=== PATIENT | female | born 1960 ===

== ENCOUNTER 2018-04-26 13:34 | Outpatient (CLI) | payer SELFPAY | END 2018-04-26 13:35 | disposition home or self-care (01) | LOC: C.USIC 13:34 | DX: Q61.2 Polycystic kidney, adult type (principal) ==

== ENCOUNTER 2018-04-27 10:11 | Outpatient (CLI) | payer SELFPAY | END 2018-04-27 10:12 | disposition home or self-care (01) | LOC: C.LAB 10:11 | DX: Q61.2 Polycystic kidney, adult type (principal) ==

== ENCOUNTER 2018-05-23 12:05 | Outpatient (CLI) | payer SELFPAY | END 2018-05-23 12:06 | disposition home or self-care (01) | LOC: C.LAB 12:05 | DX: Q61.2 Polycystic kidney, adult type (principal) ==

== ENCOUNTER 2018-07-04 22:37 | Emergency (ER) | payer SELFPAY ==
--- NOTE | 2018-07-04 23:52 | C.PDOC ---
Time Seen by Provider: 07/04/18 23:19 Chief Complaint (Nursing): Upper Extremity Problem/Injury Past Medical History Vital Signs: Last Vital Signs Temp 97.3 F L 07/04/18 22:41 Pulse 86 07/04/18 22:41 Resp 20 07/04/18 22:41 BP 189/99 H 07/04/18 22:41 Pulse Ox 96 07/04/18 22:41 Primary Care Provider: Non [facility] Provider, - Medical History PMH: HTN, Chronic Kidney Disease Family History: States: Unknown Family Hx - Social History Hx Alcohol Use: Yes Hx Substance Use: No ED Course And Treatment O2 Sat by Pulse Oximetry: 96 Disposition - Disposition
[2018-07-04] MEDS ORDERED: Midazolam 2 MG/2 ML VIAL IV STA (23:54)
--- NOTE | 2018-07-05 00:11 | C.PDOC ---
History Of Present Illness 57 year old female presents to the ED for evaluation of left shoulder pain. Patient reports 2 hours [employer] she tripped and fell off a curb. Patient states it was dark outside was not able to see very well, tripped on the curb and landed on her left shoulder. Patient denies headache, visual changes, neck pain, rash, other injuries. Time Seen by Provider: 07/04/18 23:19 Chief Complaint (Nursing): Upper Extremity Problem/Injury History Per: Patient History/Exam Limitations: no limitations Onset/Duration Of Symptoms: Hrs (2) Current Symptoms Are (Timing): Still Present Quality: "Pain" Exacerbating Factor(s): Strenuous Use Of Affected Area, Movement Recent travel outside of the [place]: No Additional History Per: Patient Past Medical History Reviewed: Historical Data, Nursing Documentation, Vital Signs Vital Signs: Last Vital Signs Temp 97.3 F L 07/04/18 22:41 Pulse 86 07/04/18 22:41 Resp 20 07/04/18 22:41 BP 189/99 H 07/04/18 22:41 Pulse Ox 96 07/04/18 23:56 Primary Care Provider: Non [facility] Provider, - Medical History PMH: HTN, Chronic Kidney Disease Surgical History: No Surg Hx Family History: States: Unknown Family Hx - Social History Hx Alcohol Use: Yes Hx Substance Use: No Review Of Systems Constitutional: Negative for: Fever, Chills Eyes: Negative for: Vision Change Cardiovascular: Negative for: Chest Pain Respiratory: Negative for: Cough, Shortness of Breath Gastrointestinal: Negative for: Nausea, Vomiting, Abdominal Pain Musculoskeletal: Positive for: Shoulder Pain (left) Skin: Negative for: Rash Neurological: Negative for: Weakness, Numbness, Headache, Dizziness Physical Exam - Physical Exam Appears: Non-toxic, In Acute Distress Skin: Normal Color, Warm, Dry, No Pale, No Rash Head: Atraumatic, Normacephalic Eye(s): bilateral: Normal Inspection, PERRL, EOMI Ear(s): Bilateral: Normal Oral Mucosa: Moist Throat: No Erythema, No Exudate Neck: Normal ROM, No Midline Cervical Tenderness, Supple Chest: Symmetrical, No Tenderness Cardiovascular: Rhythm Regular, No Friction Rub, No Murmur Respiratory: Normal Breath Sounds, No Rales, No Rhonchi Gastrointestinal/Abdominal: Soft, No Tenderness Back: Normal Inspection, No CVA Tenderness Extremity: No Normal ROM (limited left shoulder due to pain), Tenderness (lateral aspect left shoulder), Capillary Refill (< 2 seconds), Deformity, Swelling (moderate lateral aspect left shoulder) Extremity: Bilateral: Normal Color And Temperature Pulses: Left Radial: Normal, Right Radial: Normal Neurological/Psych: Oriented x3, Normal Speech, Normal Cognition, Normal Motor, Normal Sensation Gait: Steady ED Course And Treatment O2 Sat by Pulse Oximetry: 96 (ON RA) Pulse Ox Interpretation: Normal - Other Rad Left shoulder X-Ray X-Ray: Interpreted by Me, Viewed By Me Interpretation: (+) dislocation, No fracture Medical Decision Making Medical Decision Making: Plan: * Tylenol 975 mg PO * Left shoulder X-Ray * Left humerus X-Ray Discussed case with Dr. Story, who will perform reduction of the shoulder in main ED. Disposition - Disposition Referrals: Merrill Kiser MD [Staff Provider] - Disposition: HOME/ ROUTINE Disposition Time: 01:47 Condition: GOOD Additional Instructions: Follow up with the medical doctor within 1-2 days. Return if worsened. Prescriptions: Acetaminophen [Tylenol] 325 mg PO Q6 PRN #30 tab PRN Reason: Pain, Mild (1-3) Instructions: Shoulder Dislocation (DC), Moderate Sedation in Adults (DC) Forms: [facility] (Yakut) Print Language: TOGOLESE - Clinical Impression Clinical Impression: Shoulder dislocation - PA / LEAD ATG DEVELOPER / Resident Statement MD/DO has reviewed & agrees with the documentation as recorded. - Scribe Statement The provider has reviewed the documentation as recorded by the Scribe Ricky Garrison All medical record entries made by the Scribe were at my direction and personally dictated by me. I have reviewed the chart and agree that the record accurately reflects my personal performance of the history, physical exam, medical decision making, and the department course for this patient. I have also personally directed, reviewed, and agree with the discharge instructions and disposition. Proc Sedation PRE-PROCEDURE - Pre-Anesthesia Chief Complaint: Upper Extremity Problem/Injury Past Medical History: Medications Reviewed, Allergies Reviewed, Record Review Previous Surgies: Reviewed Family History/Social History: Reviewed - Physical Exam/Review of Systems Vital Signs Reviewed: Yes Cardiovascular: Regular Rate and Rhythm, Normal S1, S2. denies: Murmurs Respiratory/Chest: Clear to Auscultation, Good Air Exchange. denies: Respiratory Distress, Accessory Muscle Use Neurological: GCS=15, CN II-XII Intact, Speech Normal Abdomen: Normal Bowel Sounds. denies: Tenderness, Distention, Peritoneal Signs Mental Status: Alert and Oriented X 3 - Pre-Procedure Airway Assessment History of difficult intubation or surgical airway (i.e trach):: No Inability to extend neck:: No Mouth opening less than two finger breadth:: No Diagnosis of sleep apnea:: No Less than three finger breadth to hyoid bone:: No ASA Criteria: 1 - Healthy, normal. 2 - Mild systemic disease (No functional limitations, mildline obesity, DM withot complications, Hypertention). 3 - Severe systemic disease (Some functional limitation, stable angina, morbid obesity, controlled COPD/Asthma/CHF). 4 - Sever systemic disease constant threat to life (Unstable angina, active symptoms of COPD/Asthma, CHF/Hypertension. 5 - Moribund ASA Clarification: ASA I Proc Sedation INTRA-PROCEDURE - Medications Medications Given: Discontinued Medications Acetaminophen (Tylenol 325mg Tab) 975 mg PO STAT STA Stop: 07/04/18 23:34 Last Admin: 07/04/18 23:34 Dose: 975 mg MAR Pain/Vitals Document 07/04/18 23:34 LD (Rec: 07/04/18 23:35 LD [id number]) Pain Reassessment Is This A Pain ReAssessment? No Sleep Is patient sleeping during reassessment? No Presence of Pain Presence of Pain Yes Fentanyl (Fentanyl) 100 mcg IV STAT STA Stop: 07/04/18 23:55 Midazolam HCl (Versed Inj) 4 mg IV STAT STA Stop: 07/04/18 23:55 Proc Sedation POST-PROCEDURE - Post Procedure Physician Note Post Procedure Note: The patient tolerated the procedure well - Discharge Checklist Written MD order for Discharge: Yes Vital signs assessed and are consistent with pre-procedure reading: Yes Minimal nausea, vomiting, and dizziness: No Ambulates to pre-procedural level: Yes Alert and oriented to pre-procedural level: Yes Responsible adult escort present: Yes (Friend at bedside) DISCHARGE INSTRUCTIONS GIVEN:: Yes Procedures - Orthopedic Joint Reduction Joint #1 Consent Obtained: written consent Time Out Performed: Yes Side: left Joint Reduction Location: shoulder Analgesia: procedural sedation Shoulder Technique Used (if applicable): Ashley Technique Used: direct manipulation Post-Reduction Neuro Exam: intact Post-Reduction Vascular Exam: intact Post Reduction X-Ray Obtained: Yes (The shoulder was reduced with success) Post Reduction X-Ray Results: reduced Splint Applied: Yes (Figure 8 shoulder immobilizer applied) Patient Tolerated Procedure: well
[2018-07-05] MEDS ORDERED: Midazolam 2 MG/2 ML VIAL ONE (00:39)
[2018-07-05 01:31] VITALS: RESP 16
[2018-07-05 02:18] VITALS: BP 134/76; PULSE 78; TEMP 98.4
[2018-07-05 02:22] VITALS: O2SAT 96
--- NOTE | 2018-07-05 07:37 | RAD ---
Date of service: 07/04/2018 PROCEDURE: Radiographs of the Left Shoulder HISTORY: fall, injury COMPARISON: No prior. TECHNIQUE: 3 views obtained. FINDINGS: BONES: No definitive displaced fracture or destructive bony lesion appreciable at this time. JOINTS: There is an anterior inferior dislocation of the left humerus relative to the glenoid process. The acromial clavicular joint appears mildly degenerated and is otherwise intact. SOFT TISSUES: Normal. OTHER FINDINGS: None. IMPRESSION: Anteroinferior dislocation left humeral head relative to the glenoid process. Degenerative change acromioclavicular joint. No acute fracture is displaced.
--- NOTE | 2018-07-05 07:41 | RAD ---
PROCEDURE: Radiographs of the left humerus. HISTORY: arm injury COMPARISON: None. TECHNIQUE: 2 views obtained. FINDINGS: BONES: No acute fracture or destructive bony lesion is appreciated throughout the left humerus. The left humeral head appears dislocated anterior inferiorly relative to the glenoid process, described in separate left shoulder radiographs separately but also performed 07/04/2018. Small exostosis or spur is identified the inferior margins of the acromion. SOFT TISSUES: Normal. OTHER FINDINGS: None. IMPRESSION: No fracture of the left humerus appreciable. Anteroinferior dislocation left humeral head relative to glenoid process as per above. Please see separate left shoulder radiograph report 07/04/2018. Small exostosis or spur identified at the inferior margins of the acromion.
--- NOTE | 2018-07-05 07:44 | RAD ---
Date of service: 07/05/2018 PROCEDURE: Radiographs of the Left Shoulder HISTORY: fall COMPARISON: No prior. TECHNIQUE: 1 views obtained. FINDINGS: BONES: A single frontal postreduction projection demonstrates the left humeral head reduced at the left glenohumeral joint although the positioning is somewhat limited. No displaced fracture appreciable grossly. Positioning projects the left humeral head immediately inferior to the glenoid process and based on the appearance of the left hemithorax, this is largely of function of image capture of similar to apical lordotic type positioning of the chest. JOINTS: Reduced dislocation apparent. SOFT TISSUES: Normal. OTHER FINDINGS: None. IMPRESSION: Left humeral head now reduced at the glenohumeral joint distortion of the image limits interpretation somewhat. No displaced fracture appreciable grossly.
== END 2018-07-05 02:20 | disposition home or self-care (01) ==
LOC: C.ER 22:37
DX: S43.005A Unspecified dislocation of left shoulder joint, initial encounter (principal); W01.0XXA Fall on same level from slipping, tripping and stumbling without subsequent striking against object, initial encounter; I12.9 Hypertensive chronic kidney disease with stage 1 through stage 4 chronic kidney disease, or unspecified chronic kidney disease; N18.9 Chronic kidney disease, unspecified
CPT/HCPCS: 23650; 73030; 73060; 99285; J2250; J3010

== ENCOUNTER 2018-07-13 11:03 | Outpatient (CLI) | payer SELFPAY | END 2018-07-13 11:04 | disposition home or self-care (01) | LOC: C.LAB 11:03 | DX: Q61.2 Polycystic kidney, adult type (principal) ==

== ENCOUNTER 2018-07-20 09:53 | Emergency (ER) | payer SELFPAY ==
[2018-07-20 10:05] VITALS: RESP 20; TEMP 98.8
[2018-07-20] MEDS ORDERED: Lidocaine 5% Patch TD STA (10:33)
[2018-07-20] MEDS ORDERED: Lidocaine 5% Patch TD ONE (10:40)
--- NOTE | 2018-07-20 11:22 | C.PDOC ---
History Of Present Illness Patient is a 57 year old female who presents to the ED c/o left upper arm pain since this morning. Patient states that she had a fall on July and sustained a shoulder dislocation that was reduced at [facility] and has been well since then. She reports that last night she feels she jerked her arm in her sleep and sustained pain to her upper arm area. Her pain does not affect her shoulder or elbow joint, just the mid upper arm. She denies any trauma, falls, injury, fever, chills, or nausea. Time Seen by Provider: 07/20/18 10:16 Chief Complaint (Nursing): Upper Extremity Problem/Injury History Per: Patient History/Exam Limitations: no limitations Onset/Duration Of Symptoms: Hrs Current Symptoms Are (Timing): Still Present Quality: "Pain" Recent travel outside of the [place]: No Additional History Per: Patient Past Medical History Reviewed: Historical Data, Nursing Documentation, Vital Signs Vital Signs: Last Vital Signs Temp 98.8 F 07/20/18 10:07 Pulse 68 07/20/18 10:07 Resp 20 07/20/18 10:07 BP 144/77 07/20/18 10:07 Pulse Ox 100 07/20/18 10:07 Primary Care Provider: Non [facility] Provider, - Medical History PMH: HTN, Chronic Kidney Disease Surgical History: No Surg Hx Family History: States: Unknown Family Hx - Social History Hx Alcohol Use: Yes Hx Substance Use: No Review Of Systems Constitutional: Negative for: Fever, Chills Gastrointestinal: Negative for: Nausea Musculoskeletal: Positive for: Arm Pain (left upper arm ) Physical Exam - Physical Exam Appears: Non-toxic, No Acute Distress Extremity: Normal ROM (reduced mobilitywith abduction, but she does have good flexion and extension of arm. Good mobility of elbow and wrist. ), Tenderness (tenderness to mid upper arm) Neurological/Psych: Oriented x3 ED Course And Treatment O2 Sat by Pulse Oximetry: 100 (on RA) Pulse Ox Interpretation: Normal Medical Decision Making Medical Decision Making: Plan: Tylenol 975mg PO Motrin 600mg PO On reevaluation, patient reports somewhat increased mobility. Patient is set up for ortho visit August 08. Disposition Counseled Patient/Family Regarding: Diagnosis, Need For Followup, Rx Given - Disposition Disposition: HOME/ ROUTINE Disposition Time: 11:20 Condition: IMPROVED Prescriptions: Acetaminophen [Tylenol Extra Strength] 1,000 mg PO TID #8 tablet Ibuprofen [Motrin] 600 mg PO TID #15 tab Instructions: Muscle and Bone Pain (DC) Forms: [facility] (New Zealander), Gen Discharge Inst New Zealander - POA Present On Arrival: None - Clinical Impression Clinical Impression: Muscle strain - Scribe Statement The provider has reviewed the documentation as recorded by the Joseibrivera Rios All medical record entries made by the Scribe were at my direction and personally dictated by me. I have reviewed the chart and agree that the record accurately reflects my personal performance of the history, physical exam, medical decision making, and the department course for this patient. I have also personally directed, reviewed, and agree with the discharge instructions and disposition.
[2018-07-20 11:23] VITALS: BP 175/95; PULSE 54
[2018-07-20 11:59] VITALS: O2SAT 100
== END 2018-07-20 11:30 | disposition home or self-care (01) ==
LOC: C.ER 09:53
DX: S46.912A Strain of unspecified muscle, fascia and tendon at shoulder and upper arm level, left arm, initial encounter (principal); X58.XXXA Exposure to other specified factors, initial encounter

== ENCOUNTER 2018-07-20 19:08 | Emergency (ER) | payer SELFPAY ==
--- NOTE | 2018-07-20 20:44 | C.PDOC ---
History Of Present Illness 57 year old female presents to ED with worsened left shoulder pain for the past day. Patient dislocated her left shoulder on July 05 and was seen in [facility] ED. Patient had a good relocation of the shoulder. Patient was also seen this morning in the [facility] for worsening left shoulder pain, which began spontaneously while in bed overnight and rolled over. No relocation maneuvers were attempted in the ED visit earlier today. Patient reports that she felt better at home, but is now in more severe pain than earlier today. She denies weakness, numbness, fall, or trauma. Time Seen by Provider: 07/20/18 19:45 Chief Complaint (Nursing): Upper Extremity Problem/Injury History Per: Patient History/Exam Limitations: no limitations Onset/Duration Of Symptoms: Days (1) Current Symptoms Are (Timing): Still Present Quality: "Pain" Past Medical History Reviewed: Historical Data, Nursing Documentation, Vital Signs Vital Signs: Last Vital Signs Temp 97.6 F 07/20/18 19:27 Pulse 68 07/20/18 19:27 Resp 20 07/20/18 19:27 BP 195/121 H 07/20/18 19:27 Pulse Ox 100 07/20/18 19:27 Primary Care Provider: Clinic,Med S[facility] - Medical History PMH: HTN, Chronic Kidney Disease Surgical History: No Surg Hx Family History: States: Unknown Family Hx - Social History Hx Alcohol Use: Yes Hx Substance Use: No Review Of Systems Constitutional: Negative for: Fever Musculoskeletal: Positive for: Shoulder Pain (left shoulder) Neurological: Negative for: Weakness, Numbness Physical Exam - Physical Exam Appears: Non-toxic, Other (severe pain ) Skin: Normal Color, Warm, Dry Head: Atraumatic, Normacephalic Neck: Normal ROM, Supple Chest: Symmetrical, No Deformity Cardiovascular: Rhythm Regular, No Murmur Respiratory: No Accessory Muscle Use, No Rales, No Rhonchi, No Wheezing Gastrointestinal/Abdominal: Soft, No Tenderness Extremity: Capillary Refill (<2 seconds), Deformity (questionable step off deformity to the left deltoid; no significantly different than the right; neurovascular intact) Extremity: Right: Atraumatic, Normal Color And Temperature, Normal ROM Pulses: Left Radial: Normal, Right Radial: Normal Neurological/Psych: Oriented x3, Normal Speech, Normal Cognition, Normal Motor, Normal Sensation ED Course And Treatment O2 Sat by Pulse Oximetry: 100 (in RA) Pulse Ox Interpretation: Normal Progress Note: Left shouler X-ray ordered. Patient given Toradol IM and tramadol PO. Medical Decision Making Medical Decision Makinnd ED visit today now s/p reduction of L shoulder disloc was difficult, requiring 3-4 attempts Refer to Ortho for definitive tx. Dr. Kiser as initially referred 07/05/18 Disposition Doctor Will See Patient In The: Office Counseled Patient/Family Regarding: Studies Performed, Diagnosis - Disposition Referrals: [facility]ics Anonymous [Outside] [employer] [facility] [Outside] [email or web address] [facility] [Outside] [facility] [Outside] [facility] [Outside] Merrill Kiser MD [Staff Provider] - Disposition: HOME/ ROUTINE Disposition Time: 23:09 Condition: GOOD Additional Instructions: sigue con hielo encima 1/2 hora por hora, nada caliente Ibuprofeno 400-600 mg cada 6 horas cecilia necessario Mantiene el Sling en freire lugar TAMBIEN CUANDO ESTA DORMIENDO [place] Dr. Kiser- Orthopedico- para seguir freire evaluaci'n [place] para hacer christiano Instructions: Shoulder Dislocation, Moderate Sedation in Adults, Shoulder Instability (DC) Forms: [email or web address] (Lithuanian) Print Language: TANZANIAN - Clinical Impression Clinical Impression: Shoulder dislocation, recurrent - Scribe Statement The provider has reviewed the documentation as recorded by the Scribe (Reina Lemus) All medical record entries made by the Scribe were at my direction and personally dictated by me. I have reviewed the chart and agree that the record accurately reflects my personal performance of the history, physical exam, medical decision making, and the department course for this patient. I have also personally directed, reviewed, and agree with the discharge instructions and disposition.
[2018-07-20] MEDS ORDERED: Propofol 10 mg/ml Inj (20 ML) IV ONE (21:41)
[2018-07-20] MEDS ORDERED: Propofol 10 mg/ml Inj (20 ML) ONE (22:07)
[2018-07-20 23:09] VITALS: O2SAT 100
[2018-07-20 23:25] VITALS: BP 172/80; PULSE 81; RESP 19; TEMP 98
--- NOTE | 2018-07-21 10:23 | RAD ---
PROCEDURE: Radiographs of the Left Shoulder, three views HISTORY: ? Spontaneous dislocation COMPARISON: Left shoulder radiographs performed 07/20/18 FINDINGS: BONES: No acute displaced fracture. The distal clavicle and underlying ribs appear intact. JOINTS: Inferior medial displacement of the humeral head consistent with anterior dislocation. SOFT TISSUES: Soft tissue swelling. No evidence of radiopaque foreign body. IMPRESSION: Anterior dislocation. Soft tissue swelling.
--- NOTE | 2018-07-21 10:30 | RAD ---
Date of service: 07/20/2018 PROCEDURE: Left shoulder HISTORY: post-redux COMPARISON: 07/20/2018 at 10:46 p.m. TECHNIQUE: Single AP view FINDINGS: Status post successful closed reduction of anterior glenohumeral dislocation. No fracture. IMPRESSION: Close reduction glenohumeral dislocation.
== END 2018-07-20 23:23 | disposition home or self-care (01) ==
LOC: C.ER 19:08
DX: M24.412 Recurrent dislocation, left shoulder (principal)
CPT/HCPCS: 23650; 73020; 73030; 94770; 96372; 99285; J1885; J2704